=== PATIENT | male | born 1960 | race Caucasian/White ===

== ENCOUNTER 2016-06-04 13:32 | Emergency (ER) | payer OTHER ==
[~2016-06-04] VITALS: Ht 175.3 cm; Wt 116.1 kg
[~2016-06-04 13:32] MED LIST: MELOXICAM7.5 M1 PO
[2016-06-04 13:41] VITALS: BP 128/86
--- NOTE | 2016-06-04 14:00 | ED CARDIAC/CP/PALPITATIONS ---
History of Present Illness General Chief Complaint: Chest Pain Stated Complaint: CHEST PAIN Source: patient Exam Limitations: no limitations Vital Signs & Intake/Output Vital Signs & Intake/Output Vital Signs Date Time Temp Pulse Resp B/P Pulse O2 O2 Flow FiO2 Ox Delivery Rate 06/04 1341 97.6 77 16 128/86 97 Room Air Allergies Coded Allergies: No Known Allergies (09/25/15) Reconcile Medications Meloxicam 7.5 MG TABLET 1 TAB PO DAILY TENDONITIS Omeprazole Magnesium (Prilosec Otc) 20 MG TABLET. 1 TAB PO DAILY PRN PUD, GERD Triage Note: PT STATES HE IS HAVING PRESSURE IN THE MIDDLE OF HIS CHEST. PT STATES HE IS HAVING A LOT OF GAS ON AND OFF FOR ABOUT ONE WEEK. PT DENIES ARM PAIN OR RADIATING CHEST PAIN. PT BELCHING IN TRIAGE. PT DENIES SOB OR DIAPHORESIS Triage Nurses Notes Reviewed? yes Onset: Abrupt Duration: intermittent Timing: recent history Quality/Severity: moderate Location: substernal, epigastric Radiation: no radiation HPI: Patient is a 55-year-old male with past medical history of seasonal allergies, hypertension, hyperlipidemia who takes baby aspirin once a day who presents emergency room with a 10 day history of intermittent epigastric and substernal "pressure". Patient states that after eating and leaning over his symptoms are worse. Patient does state that he has had increased gas and belching which improves his symptoms. Patient states that eating fatty foods make worse. Denies any significant alcohol use or NSAID use. Patient had a endoscopy colonoscopy 2 years [address] performed [address] Munoz with per patient unremarkable findings. Last bowel movement was 2 days ago no blood no melena noted. Patient states that he is presenting to the emergency room because his significant other 's brother suddenly of a massive heart attack and he became anxious for his 10 day symptoms. Denies any history of DVT PE hemoptysis cough shortness of breath leg swelling recent travel recent surgery cancer, fever chills arm pain jaw pain nausea vomiting (VLAD LOPEZ) Past History Travel History Traveled to [place] past 21 day No Medical History Any Pertinent Medical History? see below for history Cardiovascular: hypertension, hyperlipidemia Surgical History Surgical History: non-contributory, N Psychosocial History What is your primary language Guyanese Tobacco Use: Never used ETOH Use: occasional use Illicit Drug Use: denies illicit drug use Family History Hx Contributory? No (VLAD LOPEZ) Review of Systems Review of Systems Constitutional: Reports: no symptoms. EENTM: Reports: no symptoms. Respiratory: Reports: see HPI. Denies: cough, hemoptysis. Cardiovascular: Reports: see HPI, chest pain. GI: Reports: see HPI, abdominal pain. Genitourinary: Reports: no symptoms. Musculoskeletal: Reports: no symptoms. Skin: Reports: no symptoms. Neurological/Psychological: Reports: no symptoms. Hematologic/Endocrine: Reports: no symptoms. Immunologic/Allergic: Reports: no symptoms. All Other Systems: Reviewed and Negative (VLAD LOPEZ) Physical Exam Physical Exam General Appearance: no apparent distress, alert, obese Cardiovascular: regular rate/rhythm Comments: HEENT: Normal EENT exam, extraocular motion intact, no nystagmus. Pupils equally round and reactive to light and accommodation. Nose is atraumatic. External auditory canal and Tympanic membranes clear. Pharynx normal. No swelling or edema. Neck: Supple, no lymphadenopathy, normal range of motion without pain or tenderness Back: Nontender, no CVA tenderness. Cardiovascular: Regular rate and rhythms no murmurs rubs or gallops, normal JVP Respiratory: Substernal superficial chest wall point tenderness noted. No respiratory distress.breath sounds clear to auscultation bilaterally Abdomen: Soft, mild epigastric point tenderness, no right upper quadrant tenderness no peritoneal signs no rebound tenderness no right lower quadrant pain nondistended, no appreciable organomegaly. Normal bowel sounds. No ascites Extremity: No edema, no calf tenderness to palpation, normal and equal pulses. Neuro: Alert oriented x3, motor sensory normal, Skin: No appreciable rash on exposed skin, skin is warm and dry. Psych: Mood and affect is normal, memory and judgment is normal. Core Measures ACS in differential dx? Yes Severe Sepsis Present: No Septic Shock Present: No (VLAD LOPEZ) Progress Differential Diagnosis: AMI, aortic dissection, atrial fibrillation, cholecystitis, CHF/pulm edema, costochondritis, hyperkalemia, hypovolemia, hyperthyroid, hyperventilation, intracranial hemorrhage, musculoskeletal pain, myocarditis, pancreatitis, pericarditis, pneumonia, pneumothorax, PSVT, pulmonary embolism, PUD/GERD, PVCs/PACs, respiratory failure, rib fracture, sepsis, unstable angina, V-fib/V-Tach, WPW syndrome Plan of Care: Orders Procedure Date/time Status Telemetry/Support Service Tech 06/04 1422 Active TROPONIN LEVEL 06/04 1422 Complete MAGNESIUM 06/04 1422 Complete LIPASE 06/04 1422 Complete DIRECT BILIRUBIN 06/04 1422 Complete COMPREHENSIVE METABOLIC PANEL 06/04 1422 Complete CBC WITHOUT DIFFERENTIAL 06/04 1422 Complete AMYLASE 06/04 1422 Complete EKG 06/04 1333 Active Laboratory Tests 06/04/16 1440: Anion Gap 14, Estimated GFR > 60, BUN/Creatinine Ratio 15.0, Glucose 87, Calcium 9.2, Magnesium 1.9, Total Bilirubin 0.7, Direct Bilirubin 0.4, AST 30, ALT 52, Alkaline Phosphatase 73, Troponin I < 0.01, Total Protein 7.5, Albumin 4.4, Globulin 3.1, Albumin/Globulin Ratio 1.4, Amylase 57, Lipase 116, CBC w Diff NO MAN DIFF REQ, RBC 5.54, MCV 90.1, MCH 30.3, RDW 13.2, MPV 8.2, Gran % 65.2, Lymphocytes % 23.6, Monocytes % 8.4, Eosinophils % 2.5, Basophils % 0.3, Absolute Granulocytes 5.0, Absolute Lymphocytes 1.8, Absolute Monocytes 0.6, Absolute Eosinophils 0.2, Absolute Basophils 0, PUBS MCHC 33.7 Patient currently is in no apparent distress, PERC was 0 essentially ruling out pulmonary embolism. Patient has reproducible chest wall point tenderness and epigastric pain which initially my suspicion is differential diagnosis of peptic ulcer disease-GERD, pancreatitis or gallbladder disease. Blood work currently is pending. Patient will be TRIALED with GI cocktail Patient was given GI cocktail with SIGNIFICANT improvement of his symptoms. Due to history of present illness and exam findings I suspect patient have GERD- peptic ulcer disease Patient HAS 10 day history of symptoms in which troponin was unremarkable and essentially all blood work and chest x-ray was unremarkable EKG unremarkable patient HAD sinus telemetry Patient was strongly advised to follow-up with court administrator in which he has requested to be seen by Dr. Gabriel Patient also strongly advised to follow-up with GI Dr. Munoz for his symptoms today and he will comply. Upon discharge patient looks well no apparent distress and will comply with discharge instructions and had no questions Discussed disposition and plan with Dr. MAYBERRY who agrees (VLAD LOPEZ) Diagnostic Imaging: Viewed by Me: Radiology Read. Initial ED EK BPM NORMAL SINUS RHYTHM (VLAD LOPEZ) Departure Departure Disposition: HOME OR SELF CARE Condition: Stable Clinical Impression Primary Impression: Epigastric pain Secondary Impressions: Atypical chest pain, PUD (peptic ulcer disease) Referrals: COLEMAN VIDALES,VALERIO Austin (PCP/Family) HARVEY VIDALES,Vicky MUNOZ MD,JUANY Tate Referred to [facility] as new patient No Additional Instructions: As discussed continue home medications as directed. Begin the prescription of Prilosec for your symptoms. On Sunday if symptoms still persist follow-up with court administrator Dr. GABRIEL and your box shook patcher Dr. Munoz and if symptoms worsen or if you develop any new concerning symptoms return to emergency room immediately. Prescription is waiting at your [facility] pharmacy Departure Forms: Customer Survey General Discharge Information Prescriptions: Current Visit Scripts Omeprazole Magnesium (Prilosec Otc) 1 TAB PO DAILY PRN PUD,GERD #30 TAB (VLAD LOPEZ) PA/BRASS BOBBIN WINDER Co-Sign Statement Statement: ED Attending supervision documentation- [] I saw and evaluated the patient. I have also reviewed all the pertinent lab results and diagnostic results. I agree with the findings and the plan of care as documented in the PA's/BRASS BOBBIN WINDER's documentation. [X] I have reviewed the ED Record and agree with the PA's/BRASS BOBBIN WINDER's documentation. [] Additions or exceptions (if any) to the PAs/BRASS BOBBIN WINDER's note and plan are summarized below: [] (JEFE VIDALES,BEHZAD) Critical Care Note Critical Care Note Critical Care Time: non-applicable (VLAD LOPEZ)
[2016-06-04 14:58] LABS: ABSOLUTE BASOPHIL COUNT 0 /CUMM (0.0-0.2); ABSOLUTE EOSINOPHIL COUNT 0.2 /CUMM (0.0-0.7); ABSOLUTE LYMPH COUNT 1.8 /CUMM (1.2-3.4); ABSOLUTE MONOCYTE COUNT 0.6 /CUMM (0.10-0.60); BASOPHIL % 0.3 % (0.0-2.0); EOSINOPHIL % 2.5 % (0-5); GRANULOCYTE % 65.2 % (42.2-75.2); HEMATOCRIT 49.9 % (42-52); MEAN CORPUSCULAR HGB 30.3 PG (27.0-31.0); MEAN CORPUSCULAR HGB CONC 33.7 G/DL (33.0-37.0); MEAN CORPUSCULAR VOLUME 90.1 FL (80.0-94.0); MEAN PLATELET VOLUME 8.2 FL (7.4-10.4); PLATELET COUNT 231 /CUMM (130-400); RBC DISTRIBUTION WIDTH 13.2 % (11.5-14.5); RED BLOOD CELL CT 5.54 /CUMM (4.70-6.10); WHITE BLOOD CELL COUNT 7.6 /CUMM (4.8-10.8)
[2016-06-04] MEDS ORDERED: PRILOSEC OTC20 M1 PO (15:24)
--- NOTE | 2016-06-04 15:28 | RADIOLOGY REPORT ---
EXAMINATION: XR CHEST CLINICAL INFORMATION: Epigastric and substernal pain. COMPARISON: None. TECHNIQUE: PA and lateral views of the chest were obtained. FINDINGS: Lungs are well expanded and clear. No pulmonary consolidation, pleural effusion or pneumothorax. No significant abnormality is noted involving the heart, lungs, mediastinum, bony thorax, or soft tissues. IMPRESSION: No acute cardiopulmonary disease.
== END 2016-06-04 15:48 ==
LOC: ERH 13:32
PROVIDERS: Physician Assistant
DX: R07.89 Other chest pain (principal); K27.9 Peptic ulcer, site unspecified, unspecified as acute or chronic, without hemorrhage or perforation
CPT/HCPCS: 93005; 93010